=== PATIENT | male | born 1995 | race Caucasian/White ===

== ENCOUNTER 2021-09-14 11:11 | Outpatient (REF) | payer MEDICAID, SELFPAY ==
[2021-09-14 13:21] LABS: C Reactive Protein 0.09 mg/dL (< or = 0.50); Rheumatoid Factor < 15.0 IU/mL (<15.0)
[2021-09-14 13:58] LABS: Erythrocyte Sedimentation Rate 2 MM/HR (0-15)
[2021-09-15 13:26] LABS: Anti Nuclear Antibody Screen NEGATIVE (NEGATIVE)
[2021-09-15 16:11] LABS: Antibody to SS-A Antigen <1.0 NEG AI (<1.0 NEG); Antibody to SS-B Antigen <1.0 NEG AI (<1.0 NEG)
== END 2021-09-14 11:12 | disposition home or self-care (01) ==
LOC: HO.MANLDS 11:11
PROVIDERS: PCP Physician Assistant; Visit Provider Physician Assistant
DX: M47.814 Spondylosis without myelopathy or radiculopathy, thoracic region (principal)
CPT/HCPCS: 36415; 85652; 86038; 86039; 86140; 86235; 86431

== ENCOUNTER 2023-06-01 13:00 | Outpatient (RCR) | payer MEDICAID, SELFPAY | END 2023-12-18 12:59 | disposition home or self-care (01) | LOC: HO.PTWFD 13:00 | PROVIDERS: PCP Physician Assistant; Visit Provider Physician Assistant | DX: M54.9 Dorsalgia, unspecified (principal) | CPT/HCPCS: 97110; 97150; 97161; 97535 ==

== ENCOUNTER 2024-05-08 10:36 | Outpatient (AMB) | payer MEDICAID, SELFPAY ==
--- NOTE | 2024-05-08 10:40 | A.OFFVIS_ITS ---
Vital Signs 05/08/24 10:42 Height 5 ft 10 in Weight 166 lb 14.239 oz BMI 23.9 BP 118/86 Blood Pressure Location Rt brachial Position Sitting Pulse 99 Pulse Source Pulse Oximeter Pulse Oximetry (%) 98 Oxygen Delivery Method Room Air Intake Visit Reasons: Joint Pain/cm Allergies morphine Allergy (Intermediate, Verified 05/08/24 10:42) Hives Medication List - Last Reconciled 05/08/24 by Chela Adames MD escitalopram oxalate 20 mg PO DAILY lorazepam 0.5 mg PO DAILY PRN HPI Comments Details: This is a 29-year-old male who presents for evaluation of diffuse pain. The condition started around 3-4 years ago. He started having central mid back pain in his spine, afterwards he started to have pain for her back especially his muscles, he gets tired when standing up for more than 30 minutes. Gets tired walking. He is currently unemployed. He wakes up multiple times at night. He denies any swollen joints. Denies any skin rashes or weight loss. He has not been able to exercise. He states that will get enough when he was 21. He has history of anxiety on Lexapro. Unaware of any family history of an autoimmune rheumatic disease. There is strong family history of fibromyalgia. States that he had Lyme infection when he was a child and it was treated early with doxycycline. Is recent Lyme screen test was positive he took doxycycline for 2 weeks without improvement. It does not look like patient had confirmatory testing [facility] Medical History ADD (attention deficit disorder) Anxiety Malrotation colon Family History Maternal Grandmother Fibromyalgia Social History Current occupational status: previously employed Current occupation: [employer] Review of Systems Const Reports fatigue ENT Reports neck pain GI Reports constipation and Reports diarrhea Musc Reports back pain, Reports arthralgias, Denies joint swelling, Reports neck pain and Reports stiffness Skin/Breast Denies rash Psych Reports abnormal sleep pattern and Reports anxiety Endo Reports fatigue Physical Exam Vital Signs: Last Vital Signs Pulse 99 05/08/24 10:42 BP 118/86 05/08/24 10:42 Pulse Ox 98 05/08/24 10:42 Oxygen Delivery Method Room Air 05/08/24 10:42 BMI result Body Mass Index 23.9 Const General: cooperative, healthy appearing and comfortable Nutritional Appearance: average body habitus Orientation/consciousness: patient oriented x3 Limitations: no limitations HEENT Head: Yes normocephalic and Yes atraumatic Mouth: moist mucous membranes Resp Effort & Inspection: normal respiratory effort and able to speak in complete sentences Auscultation: clear to auscultation bilaterally Cardio Rate: regular rate Rhythm: regular rhythm Skin General skin exam: no rashes or lesions noted Neuro General: patient oriented x3 Extrem Other: No active synovitis Mildly hyper flexible thumbs Negative straight leg raise test bilaterally Negative Fabere test bilaterally Normal nailfold capillaroscopy Results Reviewed Results Reviewed: Labs 02/2024? RF/CCP/ALEXA IFA ESR 0 CRP normal Tick-borne panel negative TSH 1.40 normal? CBC normal Lyme screen positive Assessment & Plan Assessment & Plan (1) Fibromyalgia, primary: Code(s): M79.7 - Fibromyalgia Category: Medical Plan: This is a 29-year-old male who presents for evaluation of diffuse pain. Upon evaluation I do not see any evidence of an autoimmune rheumatic disease. Clinical picture rather consistent with fibromyalgia. Discussed management of fibromyalgia with patient. Is a noninflammatory, non- autoimmune central afferent processing disorder leading to a diffuse pain syndrome. I suggested evaluation by a psychotherapist and/or psychiatrist. Try to follow sleep hygiene practices. Consider a sleep study to rule out obstructive sleep apnea. Patient would benefit from increased physical activity, either through formal physical therapy or by joining a gym. Advised patient that she should start activity slowly and increase as tolerated. Consider low-impact exercises such as walking, swimming, aqua therapy stretching, yoga. Follow-up with PCP Plan I spent 30 minutes reviewing patient's chart, evaluating patient, counseling patient and documenting in the chart Coding Level of Care Code New Pt Level 3 (28791) Diagnoses Fibromyalgia, primary M79.7
[2024-05-08 10:42] VITALS: BP 118/86; PULSE 99; O2SAT 98; BMI 23.9
== END 2024-05-08 12:48 | disposition home or self-care (01) ==
PROVIDERS: PCP Physician Assistant; Visit Provider Student in an Organized Health Care Education/Training Program
DX: M79.7 Fibromyalgia (principal)
CPT/HCPCS: 99203

== ENCOUNTER → 2024-05-08 10:36 | Outpatient (BNVA) | payer MEDICAID, SELFPAY | PROVIDERS: PCP Physician Assistant; Visit Provider Student in an Organized Health Care Education/Training Program | DX: M79.7 Fibromyalgia (principal) | CPT/HCPCS: 99202 ==